=== PATIENT | male | born 1970 | race Caucasian/White ===

== ENCOUNTER 2017-04-09 10:10 | Emergency (ER) | payer OTHER ==
[~2017-04-09] VITALS: Ht 190.5 cm; Wt 90.7 kg
[2017-04-09] MEDS ORDERED: ASPIR 8181 MG PO (10:23)
[2017-04-09 10:39] LABS: ABSOLUTE BASOPHILS 0.1 thou/uL (0.0-0.2); ABSOLUTE EOSINOPHILS 0.1 thou/uL (0.0-0.7); ABSOLUTE LYMPHOCYTES 1.1 thou/uL (0.8-5.3); ABSOLUTE MONOCYTES 0.5 thou/uL (0.0-1.2); ABSOLUTE NEUTROPHILS 7.3 thou/uL (1.6-8.1); BASOPHILS 0.7 %; EOSINOPHILS 0.8 %; HEMATOCRIT 43.9 % (42.0-52.0); HEMOGLOBIN 14.6 gm/dL (14.0-18.0); LYMPHOCYTES 11.9 %; MCH 30.3 pg (26.0-34.0); MCHC 33.3 g/dL (28.0-37.0); MONOCYTES 5.1 %; MPV 7.7 fl. (7.2-11.1); NUCLEATED RBCS 0 /100WBC; PLATELET COUNT* 372 thou/uL (150-400); POLYS 81.5 %; RBC 4.82 mil/uL (4.50-6.00); RDW-CV 13.7 % (10.5-14.5)
[2017-04-09 10:46] LABS: CALCIUM 9.3 mg/dL (8.5-10.1); CREATININE 1.1 mg/dL (0.6-1.3); POTASSIUM 3.7 mmol/L (3.5-5.1)
[2017-04-09 10:53] LABS: ALBUMIN 3.8 g/dL (3.4-5.0); TOTAL BILIRUBIN 0.6 mg/dL (<0.1-1.0); TOTAL PROTEIN 7.2 g/dL (6.4-8.2); TROPONIN-I LEVEL 0.12 ng/mL (<0.06)
[2017-04-09] MEDS ORDERED: NITROGLYCERIN0.4 MG SUBLING (14:00)
[2017-04-09 14:07] VITALS: BP 111/67
--- NOTE | 2017-04-10 13:10 | EKG ---
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 : 1970 Requested By: Jaycee Grier Order Number: [id number] Reading MD: Brett Ortega Measurements Intervals [place] Rate: 87 P: 83 ND: 132 QRS: 107 QRSD: 98 T: 83 QT: 380 QTc: 457 Interpretive Statements Sinus rhythm Right atrial enlargement Abnormal lateral Q waves Anterior infarct, old No previous ECG available for comparison Electronically Signed On 04-10-2017 13:10:28 [employer] by Brett Ortega [email or web address] <ELECTRONICALLY SIGNED> By: Brett Ortega MD, [facility] 04/10/17 1310 1015 1015 Brett Ortega MD, FACC /EPI
--- NOTE | 2017-04-10 13:11 | EKG ---
[place] [address] ELECTROCARDIOGRAM REPORT Name: DAMON GUERRERO Room: [facility]#: [id number] Admission: 04/09/17 Attend Phys: Discharge: 04/09/17 Date of : 70 Report #: [id number] THIS REPORT FOR: //name// [facility] ED Test Date: 2017-04-09 Test Time: 13:25:41 Pat Name: DAMON GUERRERO Department: Room: Gender: M Director Market Intelligence: LAVON : 1970 Requested By: Jaycee Grier Order Number: [id number] Reading MD: Brett Ortega Measurements Intervals [place] Rate: 82 P: 84 MD: 134 QRS: 113 QRSD: 96 T: 84 QT: 405 QTc: 473 Interpretive Statements Sinus rhythm Biatrial enlargement Abnormal lateral Q waves Anterior infarct, old No previous ECG available for comparison Electronically Signed On 04-10-2017 13:11:27 [employer] by Brett Ortega [email or web address] <ELECTRONICALLY SIGNED> By: Brett Ortega MD, [facility] 04/10/17 1311 1325 1325 Brett Ortega MD, FACC /EPI
== END 2017-04-09 14:08 ==
LOC: M.ERS 10:10
PROVIDERS: Personal Emergency Response Attendant
DX: R07.89 Other chest pain (principal); F41.9 Anxiety disorder, unspecified; Z95.5 Presence of coronary angioplasty implant and graft; Z88.0 Allergy status to penicillin